=== PATIENT | female | born 1985 | race Caucasian/White ===

== ENCOUNTER 2018-01-24 21:09 | Emergency (ER) | payer SELFPAY ==
[~2018-01-24] VITALS: Ht 152.4 cm; Wt 57.0 kg
--- NOTE | 2018-01-24 21:30 | NUR ---
BREATHING TREATMENT GIVEN BACK TO BACK FOR SOB AND WHEEZING. BREATHING TECH. FOR GOOD DEPOSITION TO THE LUNGS.
[2018-01-24 21:44] LABS: HEMATOCRIT 50.5 % (37.0-47.0); IMMATURE GRANULOCYTES 0.5 % (0.0-1.0); MEAN CELL VOLUME 79.7 fL CALC (80.0-100.0); MEAN CORPUSCULAR HGB 26.8 pG CALC (26.0-32.0); MEAN CORPUSCULAR HGB CONC 33.7 g/L CALC (32.0-36.0); NEUT# 7.12 thou/uL (2.00-7.15); RED BLOOD COUNT 6.34 mill/uL (4.20-5.60); RED CELL DISTRI WIDTH 12.7 % (11.5-15.5)
[2018-01-24 22:10] LABS: ALBUMIN 4.8 g/dL (3.2-5.0); ALKALINE PHOSPHATASE 116 u/l (38-126); ANION GAP 21 (6-22 (CALC)); BILIRUBIN, TOTAL 0.5 mg/dL (0.0-1.4); BUN 11 mg/dL (7-17); BUN/CREATININE RATIO 11 (12-20 (CALC)); CARBON DIOXIDE 23 mmol/l (22-30); CHLORIDE 103 mmol/l (95-108); GFR > 60 ML/MIN (>=60 (CALC)); GFR FOR AFR.AMER. > 60 ML/MIN (>=60 (CALC)); POTASSIUM 4.6 mmol/l (3.5-5.1); SGOT/AST 25 u/l (14-36); SGPT/ALT 38 u/l (9-52); SODIUM 142 mmol/l (137-146); TOTAL PROTEIN 8.8 g/dL (6.3-8.2)
[2018-01-24] MEDS ORDERED: ALBUTEROL SUL0.083 % IN (22:29)
[2018-01-24] MEDS ORDERED: CEPHALEXIN500 MG PO (22:29)
[2018-01-24] MEDS ORDERED: SYMBICORT1 AE1 IN (22:29)
[2018-01-24] MEDS ORDERED: MEDDOSEPAK PO (22:29)
[2018-01-24 23:29] VITALS: BP 123/73
== END 2018-01-24 23:30 | disposition home or self-care (01) | DRG 203 ==
LOC: ED 21:09
PROVIDERS: Emergency Medicine
DX: J45.901 Unspecified asthma with (acute) exacerbation (principal)